=== PATIENT | male | born 1985 | race Caucasian/White ===

== ENCOUNTER 2017-03-11 15:54 | Inpatient (IN) | payer MEDICARE ==
[~2017-03-11] VITALS: Ht 172.7 cm; Wt 132.2 kg
[2017-03-11] MEDS ORDERED: DEXAMETHASONE 4 MG TABLET PO ONE (16:30)
[2017-03-11] MEDS ORDERED: SODIUM CHLORIDE FLUSH 10ML SYR IVF ONE (17:00)
[2017-03-11] MEDS ORDERED: SODIUM CHLORIDE 0.9% 1,000 ML IV ONE (17:08)
[2017-03-11] MEDS ORDERED: DEXAMETHASONE 4 MG TABLET ONE (17:10)
[2017-03-11 17:27] LABS: HEMATOCRIT 47.8 % (39.2-51.8); HEMOGLOBIN 15.8 g/dL (13.7-18.0); WHITE BLOOD COUNT 13.5 x10^3/uL (3.4-10)
[2017-03-11] MEDS ORDERED: LEVOFLOXACIN/PMX 750MG/150ML 150 ML IVPB ONE (17:30)
[2017-03-11 17:37] LABS: BLOOD UREA NITROGEN 12 mg/dL (7-18)
[2017-03-11] MEDS ORDERED: LEVOFLOXACIN/PMX 750MG/150ML 150 ML ONE (17:44)
[2017-03-11] MEDS ORDERED: DOCUSATE 100 MG CAPSULE PO PRN (19:30)
[2017-03-11] MEDS ORDERED: DIPHENHYDRAMINE 25 MG CAPSULE PO PRN (19:30)
[2017-03-11] MEDS ORDERED: ACETAMINOPHEN 325 MG TABLET PO PRN (19:30)
[2017-03-11] MEDS ORDERED: ENALAPRILAT 1.25 MG/ML, 2ML IVPush PRN (19:30)
[2017-03-11] MEDS ORDERED: DEXAMETHASONE 4 MG/ML, 1ML ONE (19:57)
[2017-03-11] MEDS ORDERED: ENOXAPARIN 40 MG/0.4 ML ONE (19:58)
[2017-03-11] MEDS ORDERED: VANCOMYCIN PER PHARMACY MC PRN (20:00)
[2017-03-11] MEDS: ENOXAPARIN 40 MG/0.4 ML SQ SCH (20:01)
[2017-03-11] MEDS: DEXAMETHASONE 4 MG/ML, 1ML IVPush SCH (20:01)
[2017-03-11] MEDS: NYSTATIN 500,000 UNITS/5 ML UDC PO SCH (20:26)
[2017-03-11] MEDS ORDERED: PHARMACOKINETIC MONITORING MC PRN (23:30)
[2017-03-12] MEDS: VANCOMYCIN 2,500 MG in SODIUM CHLORIDE 0.9% 500 ML IV SCH ×2 (00:20→12:02)
[2017-03-12] MEDS: SODIUM CHLORIDE 0.9% 1,000 ML IV SCH ×3 (00:20→11:41)
[2017-03-12] MEDS ORDERED: DEXAMETHASONE 4 MG/ML, 1ML ONE ×3 (02:19→09:23)
[2017-03-12] MEDS: NYSTATIN 500,000 UNITS/5 ML UDC PO SCH ×4 (03:02→21:34)
[2017-03-12] MEDS: DEXAMETHASONE 4 MG/ML, 1ML IVPush SCH ×5 (03:03→21:34)
[2017-03-12] MEDS ORDERED: CEFTRIAXONE PMX 2GM/50ML 50 ML IV SCH (05:00)
[2017-03-12] MEDS ORDERED: CEFTRIAXONE PMX 2GM/50ML 50 ML ONE (05:01)
[2017-03-12 05:14] LABS: HEMATOCRIT 47.6 % (39.2-51.8); HEMOGLOBIN 15.9 g/dL (13.7-18.0); WHITE BLOOD COUNT 13.7 x10^3/uL (3.4-10)
[2017-03-12 05:15] LABS: BLOOD UREA NITROGEN 13 mg/dL (7-18)
[2017-03-12] MEDS ORDERED: OMNIPAQUE 350 MG/ML, 100ML BOTTLE ONE (09:19)
[2017-03-12 17:25] VITALS: BP 152/94
[2017-03-12] MEDS ORDERED: SODIUM CHLORIDE 0.9% 1,000 ML IV SCH (19:22)
[2017-03-12 19:54] VITALS: BP 138/83
[2017-03-12] MEDS: ENOXAPARIN 40 MG/0.4 ML SQ SCH (21:33)
[2017-03-12] MEDS: AMPICILLIN/SULBACTAM 3 GM in SODIUM CHLORIDE 0.9% 100 ML IV SCH (21:34)
[2017-03-13] MEDS: AMPICILLIN/SULBACTAM 3 GM in SODIUM CHLORIDE 0.9% 100 ML IV SCH ×4 (03:30→23:30)
[2017-03-13] MEDS: DEXAMETHASONE 4 MG/ML, 1ML IVPush SCH ×4 (03:30→23:31)
[2017-03-13] MEDS: NYSTATIN 500,000 UNITS/5 ML UDC PO SCH ×4 (03:30→23:30)
[2017-03-13 07:05] VITALS: BP 123/77
[2017-03-13 08:19] LABS: ASPARTATE AMINO TRANSFERASE 23 U/L (15-37); BLOOD UREA NITROGEN 15 mg/dL (7-18)
[2017-03-13 08:22] LABS: HEMATOCRIT 45.5 % (39.2-51.8); HEMOGLOBIN 14.9 g/dL (13.7-18.0); WHITE BLOOD COUNT 19.3 x10^3/uL (3.4-10)
[2017-03-13 13:46] LABS: BLOOD UREA NITROGEN 16 mg/dL (7-18)
[2017-03-13 13:50] LABS: ASPARTATE AMINO TRANSFERASE 26 U/L (15-37)
[2017-03-13] MEDS: VANCOMYCIN 2,500 MG in SODIUM CHLORIDE 0.9% 500 ML IV SCH ×2 (14:03)
[2017-03-13 14:28] VITALS: BP 126/78
[2017-03-13 18:47] VITALS: BP 162/77
[2017-03-13] MEDS: ENOXAPARIN 40 MG/0.4 ML SQ SCH (23:30)
[2017-03-14 00:33] VITALS: BP 157/84
[2017-03-14] MEDS: VANCOMYCIN 2,500 MG in SODIUM CHLORIDE 0.9% 500 ML IV SCH (02:23)
[2017-03-14 05:20] LABS: HEMATOCRIT 45.6 % (39.2-51.8); WHITE BLOOD COUNT 16.1 x10^3/uL (3.4-10)
[2017-03-14 05:25] LABS: BLOOD UREA NITROGEN 19 mg/dL (7-18)
[2017-03-14 05:29] LABS: ASPARTATE AMINO TRANSFERASE 33 U/L (15-37)
[2017-03-14] MEDS: AMPICILLIN/SULBACTAM 3 GM in SODIUM CHLORIDE 0.9% 100 ML IV SCH ×4 (05:55→23:31)
[2017-03-14] MEDS: NYSTATIN 500,000 UNITS/5 ML UDC PO SCH ×4 (05:56→23:31)
[2017-03-14] MEDS: DEXAMETHASONE 4 MG/ML, 1ML IVPush SCH ×2 (06:00→09:18)
[2017-03-14 08:43] VITALS: BP 152/75
[2017-03-14 12:21] VITALS: BP 120/74
[2017-03-14 18:48] VITALS: BP 138/79
[2017-03-14] MEDS: ENOXAPARIN 40 MG/0.4 ML SQ SCH (23:31)
[2017-03-15 01:05] VITALS: BP 134/83
[2017-03-15] MEDS: NYSTATIN 500,000 UNITS/5 ML UDC PO SCH ×2 (04:58→11:07)
[2017-03-15] MEDS: AMPICILLIN/SULBACTAM 3 GM in SODIUM CHLORIDE 0.9% 100 ML IV SCH ×2 (04:58→16:00)
[2017-03-15 05:48] LABS: BLOOD UREA NITROGEN 20 mg/dL (7-18); HEMATOCRIT 46.3 % (39.2-51.8); HEMOGLOBIN 15.4 g/dL (13.7-18.0); WHITE BLOOD COUNT 14.9 x10^3/uL (3.4-10)
[2017-03-15 06:45] VITALS: BP 120/74
[2017-03-15] MEDS: DEXAMETHASONE 4 MG/ML, 1ML IVPush SCH (10:57)
[2017-03-15 14:57] VITALS: BP 146/92
[2017-03-15] MEDS ORDERED: AMOX1TAB64 PO (15:56)
[2017-03-15] MEDS ORDERED: PRED10TA PO (15:57)
== END 2017-03-15 17:55 | disposition home or self-care (01) | DRG 153 ==
LOC: ED 18:11 → EDIP 18:44 → 3NE 03-12 14:30
DX: J05.10 Acute epiglottitis without obstruction (principal); Z68.41 Body mass index [BMI] 40.0-44.9, adult; I10 Essential (primary) hypertension; J36 Peritonsillar abscess; E66.01 Morbid (severe) obesity due to excess calories; F17.210 Nicotine dependence, cigarettes, uncomplicated; H54.8 Legal blindness, as defined in USA; H65.00 Acute serous otitis media, unspecified ear; I16.0 Hypertensive urgency; J32.0 Chronic maxillary sinusitis; J35.1 Hypertrophy of tonsils; Z80.3 Family history of malignant neoplasm of breast; G51.0 Bell's palsy
CPT/HCPCS: 36415; 70360; 70491; 80048; 80053; 82040; 83036; 83605; 83735; 84145; 85025; 87040; 87081; 87147; 87880; 99285; J0295; J0696; J1100; J1650; J1956; J3370; Q9967; J7030; J7040

== ENCOUNTER 2019-06-25 15:53 | Emergency (ER) | payer MEDICARE ==
[~2019-06-25] VITALS: Ht 172.7 cm; Wt 130.0 kg
[~2019-06-25 15:53] MED LIST: AMOX1TAB64 PO; PRED10TA PO
[2019-06-25 20:12] LABS: BASOPHILS % (AUTO) 2 % (0-1); EOSINOPHILS # (AUTO) 0.03 x10^3/uL (0-0.4); EOSINOPHILS % (AUTO) 0 % (1-7); LYMPHOCYTES # (AUTO) 1.06 x10^3/uL (1-3.4); LYMPHOCYTES % (AUTO) 16 % (22-44); MD NO; MEAN CORPUSCULAR HEMOGLOBIN 34.5 pg (27.5-34.5); MEAN CORPUSCULAR HGB CONC 33.4 g/dL (33.2-36.2); MEAN CORPUSCULAR VOLUME 103.1 fL (81-97); MEAN PLATELET VOLUME 8.7 fL (7.4-10.4); MONOCYTES % (AUTO) 6 % (2-9); NEUTROPHILS # (AUTO) 5.19 x10^3/uL (1.8-6.8); NEUTROPHILS % (AUTO) 77 % (42-75); PLATELET COUNT 108 x10^3/uL (130-400); RED BLOOD COUNT 4.18 x10^6/uL (4.38-5.82); RED CELL DISTRIBUTION WIDTH 16.1 % (9.4-14.8)
[2019-06-25 20:13] VITALS: BP 168/81
--- NOTE | 2019-06-25 20:14 | NUR ---
PT CAME IN COMPLAINING OF "VOMITTING UP BLOOD". PUKED IN THE BATHROOM IN THE LOBBY. FAMILY IS BEDSIDE. CALL LIGHT WITHIN REACH
[2019-06-25 20:24] LABS: ALBUMIN 3.2 g/dL (3.4-5.0); ANION GAP 7 mmol/L (5-15); CHLORIDE 104 mmol/L (98-107)
[2019-06-25] MEDS ORDERED: LORazepam 2 MG/ML, 1ML ONE (20:28)
[2019-06-25] MEDS ORDERED: ONDANSETRON 2MG/ML, 2ML ONE (20:28)
[2019-06-25 20:30] LABS: ALANINE AMINOTRANSFERASE 58 U/L (12-78); ALKALINE PHOSPHATASE 157 U/L (45-117); BILIRUBIN,TOTAL 4.2 mg/dL (0.2-1.0); CREATININE 0.77 mg/dL (0.7-1.3); TOTAL PROTEIN 8.8 g/dL (6.4-8.2)
[2019-06-25] MEDS ORDERED: ONDANSETRON 2MG/ML, 2ML IVPush ONE (20:30)
[2019-06-25] MEDS ORDERED: SODIUM CHLORIDE 0.9% 1,000ML IVBOLUS ONE (20:30)
[2019-06-25] MEDS ORDERED: LORazepam 2 MG/ML, 1ML IVPush PRN (20:30)
[2019-06-25] MEDS ORDERED: THIAMINE 100 MG in SODIUM CHLORIDE 0.9% 50 ML IVPB ONE (20:30)
[2019-06-25] MEDS ORDERED: SODIUM CHLORIDE FLUSH 10ML SYR IVF ONE (20:30)
[2019-06-25] MEDS ORDERED: LORazepam 1MG TABLET ONE (20:53)
[2019-06-25] MEDS ORDERED: MAALOX/HYOSCYAMINE/LIDOCAINE 45 ML BTL ONE (20:53)
--- NOTE | 2019-06-25 20:58 | NUR ---
PT REFUSED IV START, 1000ML NS, IV ATIVAN, IV ZOFRAN AND IV THIAMINE. PT STATED "I JUST WANT TO HAVE SOMETHING TO SETTLE MY STOMACH AND GO HOME" DR. HOLLY NOTFIED. ORDERS CHANGED TO PO ATIVAN AND GI COCKTAIL. WILL BE DC
[2019-06-25] MEDS ORDERED: LORazepam 1MG TABLET PO ONE (21:30)
[2019-06-25] MEDS ORDERED: MAALOX/HYOSCYAMINE/LIDOCAINE 45 ML BTL PO ONE (21:30)
== END 2019-06-25 21:23 | disposition home or self-care (01) ==
LOC: ED 21:15
DX: K29.20 Alcoholic gastritis without bleeding (principal); F10.239 Alcohol dependence with withdrawal, unspecified; Z87.891 Personal history of nicotine dependence; Y90.9 Presence of alcohol in blood, level not specified
CPT/HCPCS: 36415; 80053; 85025; 99283

== ENCOUNTER 2019-09-30 15:09 | Emergency (ER) | payer MEDICARE ==
[~2019-09-30] VITALS: Ht 172.7 cm; Wt 138.2 kg
--- NOTE | 2019-09-30 15:17 | NUR ---
pt. refused oxygen for transport.
[2019-09-30] MEDS ORDERED: PROMETHAZINE 25 MG/ML, 1ML IM ONE (16:30)
[2019-09-30] MEDS ORDERED: ONDANSETRON 2MG/ML, 2ML IVPush ONE (16:30)
[2019-09-30] MEDS ORDERED: morphine SULFATE 10 MG/ML, 1ML IVPush ONE (16:30)
[2019-09-30] MEDS ORDERED: SODIUM CHLORIDE 0.9% 1,000ML IVBOLUS ONE (16:30)
[2019-09-30] MEDS ORDERED: PANTOPRAZOLE 40 MG IV IV ONE (16:30)
[2019-09-30] MEDS ORDERED: MORPHINE SULFATE 4 MG/ML, 1ML ONE (16:34)
[2019-09-30] MEDS ORDERED: ONDANSETRON 2MG/ML, 2ML ONE (16:34)
[2019-09-30] MEDS ORDERED: PANTOPRAZOLE 40 MG IV ONE (16:34)
[2019-09-30] MEDS ORDERED: PROMETHAZINE 25 MG/ML, 1ML ONE (16:34)
[2019-09-30 16:49] LABS: ALANINE AMINOTRANSFERASE 33 U/L (12-78); ALBUMIN 2.5 g/dL (3.4-5.0); ANION GAP 9 mmol/L (5-15); CALCIUM 8.1 mg/dL (8.5-10.1); CHLORIDE 105 mmol/L (98-107); CREATININE 0.92 mg/dL (0.7-1.3)
[2019-09-30 16:51] LABS: ALKALINE PHOSPHATASE 151 U/L (45-117); BILIRUBIN,TOTAL 13.2 mg/dL (0.2-1.0); TOTAL PROTEIN 7.6 g/dL (6.4-8.2)
[2019-09-30 17:15] LABS: MD YES; MEAN CORPUSCULAR HEMOGLOBIN 37.9 pg (27.5-34.5); MEAN CORPUSCULAR HGB CONC 34.3 g/dL (33.2-36.2); MEAN CORPUSCULAR VOLUME 110.4 fL (81-97); MEAN PLATELET VOLUME 8.1 fL (7.4-10.4); PLATELET COUNT 109 x10^3/uL (130-400); RED BLOOD COUNT 2.82 x10^6/uL (4.38-5.82)
[2019-09-30 17:17] LABS: BAND#(MANUAL) 0.57 x10^3/uL; BANDS%(MANUAL) 11 % (0-7); LYMPH#(MANUAL) 0.62 x10^3/uL (1-3.4); LYMPHS% (MANUAL) 12 % (22-44); SEGS% (MANUAL) 77 % (42-75)
[2019-09-30 17:18] LABS: <PLATELET ESTIMATE> DECREASED; <PLT MORPHOLOGY> NORMAL PLT MORPH; ANISOCYTOSIS 1+; OVALOCYTES 1+
[2019-09-30] MEDS ORDERED: LORazepam 2 MG/ML, 1ML IVPush ONE (17:30)
[2019-09-30] MEDS ORDERED: LORazepam 2 MG/ML, 1ML ONE (17:46)
[2019-09-30 17:51] VITALS: BP 131/46
--- NOTE | 2019-09-30 17:53 | NUR ---
medicated per orders. pt unsure if he want to be admitted. md at bedside explaining poc and reason for admit
[2019-09-30] MEDS ORDERED: IBUPROFEN 200 MG TABLET PO ONE (18:30)
--- NOTE | 2019-09-30 19:22 | NUR ---
PT REFUSING TO BE ADMITTED. MD AT BEDSIDE DISCUSSING RISK OF DC. PT STATES "I NEED TO FIND THE MOTIVATION" Patient/Caregiver given discharge instructions and they have confirmed that they understand the instructions. Patient ambulatory with steady gait.
== END 2019-09-30 19:32 | disposition home or self-care (01) ==
LOC: ED 19:25
DX: K29.20 Alcoholic gastritis without bleeding (principal); E86.0 Dehydration; R50.9 Fever, unspecified; R74.8 Abnormal levels of other serum enzymes; F10.239 Alcohol dependence with withdrawal, unspecified; Y90.9 Presence of alcohol in blood, level not specified; K21.9 Gastro-esophageal reflux disease without esophagitis
CPT/HCPCS: 36415; 71045; 80053; 80307; 83690; 85025; 93005; 96365; 96372; 96375; 99285; C9113; J2060; J2270; J2405; J2550; J7030; 96361

== ENCOUNTER 2020-04-01 15:37 | Inpatient (IN) | payer MEDICARE, MEDICAID ==
[~2020-04-01] VITALS: Ht 167.6 cm; Wt 138.7 kg
[~2020-04-01 15:37] MED LIST changes: +CEFD300C37 PO; +ERGO500018 PO; +FURO10VI37 IV; +LACT20SO13 PO; +MULT-332 PO; +PANT40TA6 PO; +PROP10TA16 PO; +RIFA550T4 PO; +SPIR50TA PO; +VENL25TA PO
--- NOTE | 2020-04-01 15:49 | NUR ---
PT BIB [facility] FROM HOME. PER EMS, MOTHER CALLED 911 D/T PT BEING ALTERED WHEN HE WOKE UP THIS AM, AND GOT PROGRESSIVELY WORSE THROUGHOUT THE DAY. PT HAS HX OF LIVER FAILURE AND ALCOHOLISM. WAS ADMITTED RECENTLY FOR SAME, ELEVATED AMMONIA LEVELS. PT ALSO HAS HX OF DM, BS 108 PER EMS. PT ARRIVES TO ED LETHARGIC, TACHYPNEIC. OPENS EYES AND RESPONDS WITH REPETITIVE ANSWERS, "TODD, KRISHAN". EXTREMELY JAUNDICED. EKG DONE AT AND ER PA AT NOW.
[2020-04-01] MEDS ORDERED: SODIUM CHLORIDE FLUSH 10ML SYR IVF ONE ×2 (16:00→16:30)
[2020-04-01 16:17] LABS: BASOPHILS # (AUTO) 0.01 x10^3/uL (0-0.1); BASOPHILS % (AUTO) 0 % (0-1); EOSINOPHILS % (AUTO) 4 % (1-7); LYMPHOCYTES % (AUTO) 12 % (22-44); MD NO; MEAN CORPUSCULAR HEMOGLOBIN 36.1 pg (27.5-34.5); MEAN CORPUSCULAR HGB CONC 33.6 g/dL (33.2-36.2); MONOCYTES # (AUTO) 0.29 x10^3/uL (0.2-0.8); MONOCYTES % (AUTO) 6 % (2-9); NEUTROPHILS # (AUTO) 3.94 x10^3/uL (1.8-6.8); NEUTROPHILS % (AUTO) 78 % (42-75); PLATELET COUNT 145 x10^3/uL (130-400); RED BLOOD COUNT 2.26 x10^6/uL (4.38-5.82); RED CELL DISTRIBUTION WIDTH 14.9 % (9.4-14.8)
[2020-04-01 16:24] LABS: INTERNATIONAL NORMALIZED RATIO 1.8 (0.93-1.1); PROTHROMBIN TIME 18.6 Seconds (9.6-11.5)
[2020-04-01 16:28] LABS: ALANINE AMINOTRANSFERASE 28 U/L (12-78); ALBUMIN 3.2 g/dL (3.4-5.0); ANION GAP 12 mmol/L (5-15); CALCIUM 9.6 mg/dL (8.5-10.1); CHLORIDE 100 mmol/L (98-107); CREATININE 7.85 mg/dL (0.7-1.3)
[2020-04-01 16:32] LABS: ALKALINE PHOSPHATASE 74 U/L (45-117); BILIRUBIN,TOTAL 10.8 mg/dL (0.2-1.0)
[2020-04-01 16:35] LABS: TROPONIN I < 0.015 ng/mL (0.000-0.045)
--- NOTE | 2020-04-01 16:38 | NUR ---
STRAIGHT CATH DONE AND 600ML URINE DRAINED. LAB CALLED WITH CRITICAL BUN 105, ERP NOTIFIED.
[2020-04-01] MEDS ORDERED: CALCIUM CHLORIDE 10%, 10ML SYR ONE (16:53)
[2020-04-01] MEDS ORDERED: INSULIN LISPRO SINGLE DOSE, ER SQ-INSULIN ONE (16:53)
[2020-04-01] MEDS ORDERED: SODIUM BICARB 8.4%, 50ML SYRINGE ONE (16:53)
[2020-04-01] MEDS ORDERED: DEXTROSE 50%, 50ML SYRINGE ONE (16:53)
[2020-04-01 16:58] LABS: SALICYLATE LEVEL < 1.7 mg/dL (2.8-20.0)
[2020-04-01 17:00] LABS: AMPHETAMINE SCREEN, URINE Negative (Negative); BARBITURATE SCREEN, URINE Negative (Negative); BENZODIAZEPINE SCREEN, URINE Negative (Negative); CANNABINOID SCREEN, URINE Negative (Negative); COCAINE SCREEN, URINE Negative (Negative); METHADONE SCREEN, URINE Negative (Negative); OPIATE SCREEN, URINE Negative (Negative)
[2020-04-01] MEDS ORDERED: SODIUM BICARB 8.4%, 50ML SYRINGE IVPush ONE (17:00)
[2020-04-01] MEDS ORDERED: CALCIUM CHLORIDE 10%, 10ML SYR IVPush ONE (17:00)
[2020-04-01] MEDS ORDERED: DEXTROSE 50%, 50ML SYRINGE IVPush ONE (17:00)
[2020-04-01] MEDS ORDERED: INSULIN REGULAR 100 UNITS/ML, 3ML VIAL IVPush ONE (17:00)
--- NOTE | 2020-04-01 17:20 | NUR ---
PT TO VASCULAR LAB FOR DIALYSIS CATHETER PLACEMENT. MOTHER AT BS.
--- NOTE | 2020-04-01 18:05 | NUR ---
PT RETURNED FROM VASCULAR LAB; DIALYSIS CATHETER WAS PLACED TO R IJ. BUTT CATH INSERTED WITHOUT DIFFICULTY. MOTHER REMAINS AT BS. PT RESTING, AWAKENS TO VOICE, ANSWERS SOME BASIC QUESTIONS APPROPRIATELY.
--- NOTE | 2020-04-01 18:47 | NUR ---
ADMITTING MD WAS IN TO SEE PT.
[2020-04-01] MEDS ORDERED: FURO20TA3 PO (19:53)
--- NOTE | 2020-04-01 19:56 | NUR ---
ADMITTING MD WAS IN TO SEE PT. PT'S MOTHER REMAINS AT BS.
[2020-04-01] MEDS ORDERED: ONDANSETRON 2MG/ML, 2ML IVPush PRN (20:30)
[2020-04-02] MEDS: CEFTRIAXONE PMX 1GM/50ML 50 ML IV SCH ×2 (00:44→21:01)
[2020-04-02] MEDS: LACTULOSE 3.3 GM/5 ML ORAL.SOL RC SCH ×2 (00:45→08:00)
[2020-04-02 01:33] VITALS: BP 122/71
[2020-04-02 02:19] LABS: MICROSCOPIC AUTO
[2020-04-02 02:21] LABS: CHLORIDE,URINE RANDOM 35 mmol/L; POTASSIUM,URINE RANDOM 30 mmol/L; SODIUM,URINE RANDOM 38 mmol/L
[2020-04-02] MEDS ORDERED: GLUCAGON 1 MG IM PRN (03:30)
[2020-04-02] MEDS ORDERED: DEXTROSE 50%, 50ML SYRINGE IVPush PRN (03:30)
[2020-04-02] MEDS ORDERED: DEXTROSE 4 GM TAB.CHEW PO PRN (03:30)
[2020-04-02 06:15] LABS: CHLORIDE 102 mmol/L (98-107)
[2020-04-02 06:31] LABS: ALANINE AMINOTRANSFERASE 23 U/L (12-78); ALBUMIN 2.7 g/dL (3.4-5.0); ALKALINE PHOSPHATASE 56 U/L (45-117); ANION GAP 13 mmol/L (5-15); BILIRUBIN,TOTAL 10.7 mg/dL (0.2-1.0); CALCIUM 9.6 mg/dL (8.5-10.1); CREATININE 6.02 mg/dL (0.7-1.3); TOTAL PROTEIN 6.8 g/dL (6.4-8.2)
[2020-04-02 06:56] LABS: BASOPHILS % (AUTO) 0 % (0-1); EOSINOPHILS # (AUTO) 0.15 x10^3/uL (0-0.4); EOSINOPHILS % (AUTO) 2 % (1-7); LYMPHOCYTES # (AUTO) 0.52 x10^3/uL (1-3.4); LYMPHOCYTES % (AUTO) 8 % (22-44); MD MORPH REVIEW ONLY; MEAN CORPUSCULAR HEMOGLOBIN 37.1 pg (27.5-34.5); MEAN CORPUSCULAR HGB CONC 34.5 g/dL (33.2-36.2); MEAN PLATELET VOLUME 8.9 fL (7.4-10.4); MONOCYTES # (AUTO) 0.57 x10^3/uL (0.2-0.8); MONOCYTES % (AUTO) 9 % (2-9); NEUTROPHILS # (AUTO) 5.24 x10^3/uL (1.8-6.8); NEUTROPHILS % (AUTO) 81 % (42-75); PLATELET COUNT 95 x10^3/uL (130-400); RED BLOOD COUNT 1.97 x10^6/uL (4.38-5.82); RED CELL DISTRIBUTION WIDTH 14.5 % (9.4-14.8)
[2020-04-02 06:58] LABS: <PLATELET ESTIMATE> DECREASED; <PLT MORPHOLOGY> NORMAL PLT MORPH; ACANTHOCYTES 1+
[2020-04-02 07:12] VITALS: BP 123/71
[2020-04-02] MEDS: PANTOPRAZOLE 40 MG IV IVPush SCH (08:16)
[2020-04-02] MEDS: SODIUM CHLORIDE FLUSH 10ML SYR IVF SCH ×2 (09:00→21:02)
[2020-04-02] MEDS ORDERED: ALBUMIN HUMAN 25% 100 ML IV ONE (10:00)
[2020-04-02 12:48] VITALS: BP 144/71
[2020-04-02] MEDS ORDERED: PROPRANOLOL 10 MG TABLET PO SCH (14:00)
[2020-04-02] MEDS: RIFAXIMIN 550 MG TABLET PO SCH (16:15)
[2020-04-02] MEDS: LACTULOSE 20 GM/30 ML UDC PO SCH ×2 (16:16→21:01)
[2020-04-02] MEDS: PROPRANOLOL 10 MG TABLET PO SCH ×2 (16:16→21:01)
[2020-04-02 19:24] VITALS: BP 126/66
[2020-04-03] VITALS (10 sets, daily range): BP systolic 109–122; BP diastolic 51–78
[2020-04-03] MEDS: PROPRANOLOL 10 MG TABLET PO SCH ×3 (05:17→21:49)
[2020-04-03 05:57] LABS: INTERNATIONAL NORMALIZED RATIO 2.08 (0.93-1.1); PROTHROMBIN TIME 21.6 Seconds (9.6-11.5)
[2020-04-03 06:00] LABS: ALANINE AMINOTRANSFERASE 21 U/L (12-78); ALBUMIN 2.8 g/dL (3.4-5.0); ANION GAP 10 mmol/L (5-15); CALCIUM 9.2 mg/dL (8.5-10.1); CHLORIDE 104 mmol/L (98-107); CREATININE 4.85 mg/dL (0.7-1.3)
[2020-04-03 06:03] LABS: ALKALINE PHOSPHATASE 50 U/L (45-117); BILIRUBIN,TOTAL 11.2 mg/dL (0.2-1.0); TOTAL PROTEIN 6.8 g/dL (6.4-8.2)
[2020-04-03 06:07] LABS: MEAN CORPUSCULAR HEMOGLOBIN 36.9 pg (27.5-34.5); MEAN CORPUSCULAR HGB CONC 34.4 g/dL (33.2-36.2); RED BLOOD COUNT 1.77 x10^6/uL (4.38-5.82)
[2020-04-03 06:29] LABS: PLATELET COUNT 57 x10^3/uL (130-400)
[2020-04-03 06:30] LABS: BASOPHILS # (AUTO) 0.01 x10^3/uL (0-0.1); BASOPHILS % (AUTO) 0 % (0-1); EOSINOPHILS # (AUTO) 0.17 x10^3/uL (0-0.4); EOSINOPHILS % (AUTO) 3 % (1-7); LYMPHOCYTES # (AUTO) 0.83 x10^3/uL (1-3.4); LYMPHOCYTES % (AUTO) 17 % (22-44); MD MORPH REVIEW ONLY; MONOCYTES # (AUTO) 0.55 x10^3/uL (0.2-0.8); MONOCYTES % (AUTO) 11 % (2-9); NEUTROPHILS % (AUTO) 68 % (42-75)
[2020-04-03 06:31] LABS: ANISOCYTOSIS 1+; OVALOCYTES 1+; SCHISTOCYTES 1+
[2020-04-03 06:33] LABS: <PLATELET ESTIMATE> DECREASED; <PLT MORPHOLOGY> NORMAL PLT MORPH; ACANTHOCYTES 2+
[2020-04-03] MEDS: LACTULOSE 20 GM/30 ML UDC PO SCH ×3 (08:44→20:35)
[2020-04-03] MEDS: PANTOPRAZOLE 40 MG IV IVPush SCH (08:44)
[2020-04-03] MEDS: SODIUM CHLORIDE FLUSH 10ML SYR IVF SCH ×2 (08:45→20:35)
[2020-04-03 12:18] LABS: OCCULT BLOOD POSITIVE (NEGATIVE)
[2020-04-03] MEDS: RIFAXIMIN 550 MG TABLET PO SCH ×2 (15:06→20:35)
[2020-04-03] MEDS: CEFTRIAXONE PMX 1GM/50ML 50 ML IV SCH (20:34)
[2020-04-04] VITALS (17 sets, daily range): BP systolic 107–130; BP diastolic 43–71
[2020-04-04] MEDS: PROPRANOLOL 10 MG TABLET PO SCH ×3 (05:47→21:22)
[2020-04-04 06:33] LABS: ALANINE AMINOTRANSFERASE 21 U/L (12-78); ALBUMIN 2.8 g/dL (3.4-5.0); ANION GAP 8 mmol/L (5-15); CALCIUM 9.2 mg/dL (8.5-10.1); CHLORIDE 104 mmol/L (98-107); CREATININE 3.92 mg/dL (0.7-1.3)
[2020-04-04 06:34] LABS: MEAN CORPUSCULAR HEMOGLOBIN 36.6 pg (27.5-34.5); MEAN CORPUSCULAR HGB CONC 34.5 g/dL (33.2-36.2); MEAN PLATELET VOLUME 8.8 fL (7.4-10.4); RED BLOOD COUNT 1.61 x10^6/uL (4.38-5.82); RED CELL DISTRIBUTION WIDTH 16.7 % (9.4-14.8)
[2020-04-04 06:36] LABS: ALKALINE PHOSPHATASE 53 U/L (45-117); BILIRUBIN,TOTAL 11.6 mg/dL (0.2-1.0); TOTAL PROTEIN 6.7 g/dL (6.4-8.2)
[2020-04-04 06:37] LABS: PLATELET COUNT 42 x10^3/uL (130-400)
[2020-04-04 06:50] LABS: MD YES
[2020-04-04 06:52] LABS: BAND#(MANUAL) 0.05 x10^3/uL; BANDS%(MANUAL) 1 % (0-7); BASOS#(MANUAL) 0.05 x10^3/uL (0-0.1); BASOS% (MANUAL) 1 % (0-1); EOS#(MANUAL) 0.31 x10^3/uL (0.0-0.4); EOS% (MANUAL) 6 % (1-7); LYMPH#(MANUAL) 0.73 x10^3/uL (1-3.4); LYMPHS% (MANUAL) 14 % (22-44); MONOS#(MANUAL) 0.42 x10^3/uL (0.3-2.7); MONOS% (MANUAL) 8 % (2-9); SEG#(MANUAL) 3.64 x10^3/uL (1.8-6.8); SEGS% (MANUAL) 70 % (42-75)
[2020-04-04 06:53] LABS: ACANTHOCYTES 2+; ANISOCYTOSIS 1+
[2020-04-04 06:57] LABS: OVALOCYTES 1+
[2020-04-04 06:58] LABS: <PLATELET ESTIMATE> DECREASED; <PLT MORPHOLOGY> NORMAL PLT MORPH
[2020-04-04] MEDS ORDERED: PANTOPRAZOLE 40MG TABLET PO SCH (07:30)
[2020-04-04] MEDS: SODIUM CHLORIDE FLUSH 10ML SYR IVF SCH ×2 (09:00→20:24)
[2020-04-04] MEDS: RIFAXIMIN 550 MG TABLET PO SCH ×2 (13:55→16:35)
[2020-04-04] MEDS: LACTULOSE 20 GM/30 ML UDC PO SCH ×3 (13:56→20:59)
[2020-04-04] MEDS: CEFTRIAXONE PMX 1GM/50ML 50 ML IV SCH (20:23)
[2020-04-05] VITALS (8 sets, daily range): BP systolic 105–145; BP diastolic 43–74
[2020-04-05] MEDS: PROPRANOLOL 10 MG TABLET PO SCH ×3 (05:56→21:01)
[2020-04-05 06:31] LABS: CHLORIDE 105 mmol/L (98-107)
[2020-04-05 06:41] LABS: ALANINE AMINOTRANSFERASE 19 U/L (12-78); ALBUMIN 2.6 g/dL (3.4-5.0); ALKALINE PHOSPHATASE 51 U/L (45-117); ANION GAP 6 mmol/L (5-15); BILIRUBIN,TOTAL 14.3 mg/dL (0.2-1.0); CALCIUM 9.3 mg/dL (8.5-10.1); CREATININE 3.04 mg/dL (0.7-1.3); TOTAL PROTEIN 6.4 g/dL (6.4-8.2)
[2020-04-05 07:16] LABS: MEAN CORPUSCULAR HEMOGLOBIN 35.8 pg (27.5-34.5); MEAN CORPUSCULAR HGB CONC 33.9 g/dL (33.2-36.2); MEAN PLATELET VOLUME 8.6 fL (7.4-10.4); RED BLOOD COUNT 1.91 x10^6/uL (4.38-5.82)
[2020-04-05 07:18] LABS: PLATELET COUNT 37 x10^3/uL (130-400)
[2020-04-05 07:19] LABS: BASOPHILS # (AUTO) 0.01 x10^3/uL (0-0.1); BASOPHILS % (AUTO) 0 % (0-1); EOSINOPHILS # (AUTO) 0.22 x10^3/uL (0-0.4); EOSINOPHILS % (AUTO) 4 % (1-7); LYMPHOCYTES # (AUTO) 0.79 x10^3/uL (1-3.4); LYMPHOCYTES % (AUTO) 15 % (22-44); MD MORPH REVIEW ONLY; MONOCYTES % (AUTO) 11 % (2-9); NEUTROPHILS # (AUTO) 3.73 x10^3/uL (1.8-6.8); NEUTROPHILS % (AUTO) 70 % (42-75)
[2020-04-05 07:21] LABS: ACANTHOCYTES 2+; ANISOCYTOSIS 1+; OVALOCYTES 1+; SCHISTOCYTES 1+
[2020-04-05 07:22] LABS: <PLATELET ESTIMATE> DECREASED; <PLT MORPHOLOGY> NORMAL PLT MORPH
[2020-04-05] MEDS: SODIUM CHLORIDE FLUSH 10ML SYR IVF SCH ×2 (09:56→21:01)
[2020-04-05] MEDS: LACTULOSE 20 GM/30 ML UDC PO SCH ×3 (09:56→21:00)
[2020-04-05] MEDS: RIFAXIMIN 550 MG TABLET PO SCH ×2 (09:56→16:25)
[2020-04-05] MEDS: PANTOPRAZOLE 40 MG IV IVPush SCH ×2 (09:56→21:00)
[2020-04-05 16:34] LABS: MEAN CORPUSCULAR HGB CONC 33.9 g/dL (33.2-36.2); MEAN PLATELET VOLUME 9.3 fL (7.4-10.4); RED BLOOD COUNT 2.32 x10^6/uL (4.38-5.82); RED CELL DISTRIBUTION WIDTH 18.3 % (9.4-14.8)
[2020-04-05 16:37] LABS: PLATELET COUNT 29 x10^3/uL (130-400)
[2020-04-05 16:40] LABS: ANISOCYTOSIS 1+; BASOPHILS # (AUTO) 0.03 x10^3/uL (0-0.1); BASOPHILS % (AUTO) 0 % (0-1); EOSINOPHILS # (AUTO) 0.18 x10^3/uL (0-0.4); EOSINOPHILS % (AUTO) 3 % (1-7); LYMPHOCYTES # (AUTO) 0.65 x10^3/uL (1-3.4); LYMPHOCYTES % (AUTO) 10 % (22-44); MD MORPH REVIEW ONLY; MONOCYTES # (AUTO) 0.54 x10^3/uL (0.2-0.8); MONOCYTES % (AUTO) 9 % (2-9); NEUTROPHILS # (AUTO) 4.84 x10^3/uL (1.8-6.8); NEUTROPHILS % (AUTO) 78 % (42-75)
[2020-04-05 16:41] LABS: ACANTHOCYTES 2+; SCHISTOCYTES 1+
[2020-04-05 16:42] LABS: <PLATELET ESTIMATE> DECREASED; <PLT MORPHOLOGY> NORMAL PLT MORPH; OVALOCYTES 1+
[2020-04-05] MEDS: CEFTRIAXONE PMX 1GM/50ML 50 ML IV SCH (22:57)
[2020-04-05 23:59] LABS: MEAN CORPUSCULAR HEMOGLOBIN 34.8 pg (27.5-34.5); MEAN CORPUSCULAR HGB CONC 33.5 g/dL (33.2-36.2); MEAN PLATELET VOLUME 8.7 fL (7.4-10.4); RED BLOOD COUNT 2.31 x10^6/uL (4.38-5.82); RED CELL DISTRIBUTION WIDTH 19.1 % (9.4-14.8)
[2020-04-06] VITALS (11 sets, daily range): BP systolic 107–137; BP diastolic 50–68
[2020-04-06] LABS: PLATELET COUNT 35 x10^3/uL (130-400)
[2020-04-06 00:13] LABS: ACANTHOCYTES 2+; ANISOCYTOSIS 1+; MD MORPH REVIEW ONLY; SCHISTOCYTES 1+
[2020-04-06 00:16] LABS: <PLATELET ESTIMATE> DECREASED; <PLT MORPHOLOGY> NORMAL PLT MORPH; OVALOCYTES 1+
[2020-04-06 00:23] LABS: BASOPHILS # (AUTO) 0.01 x10^3/uL (0-0.1); BASOPHILS % (AUTO) 0 % (0-1); EOSINOPHILS % (AUTO) 4 % (1-7); LYMPHOCYTES # (AUTO) 0.62 x10^3/uL (1-3.4); LYMPHOCYTES % (AUTO) 12 % (22-44); MONOCYTES # (AUTO) 0.56 x10^3/uL (0.2-0.8); MONOCYTES % (AUTO) 11 % (2-9); NEUTROPHILS % (AUTO) 73 % (42-75)
[2020-04-06 03:11] LABS: ALANINE AMINOTRANSFERASE 16 U/L (12-78); ALBUMIN 2.6 g/dL (3.4-5.0); ANION GAP 6 mmol/L (5-15); CALCIUM 8.8 mg/dL (8.5-10.1); CHLORIDE 104 mmol/L (98-107)
[2020-04-06 03:13] LABS: ALKALINE PHOSPHATASE 49 U/L (45-117); BILIRUBIN,TOTAL 13.7 mg/dL (0.2-1.0); TOTAL PROTEIN 6.4 g/dL (6.4-8.2)
[2020-04-06 03:35] LABS: MEAN CORPUSCULAR HEMOGLOBIN 35.5 pg (27.5-34.5); RED BLOOD COUNT 2.19 x10^6/uL (4.38-5.82); RED CELL DISTRIBUTION WIDTH 18.4 % (9.4-14.8)
[2020-04-06 03:37] LABS: PLATELET COUNT 31 x10^3/uL (130-400)
[2020-04-06 03:54] LABS: MD YES
[2020-04-06 03:58] LABS: ANISOCYTOSIS 1+; BASOS#(MANUAL) 0.05 x10^3/uL (0-0.1); BASOS% (MANUAL) 1 % (0-1); EOS#(MANUAL) 0.09 x10^3/uL (0.0-0.4); EOS% (MANUAL) 2 % (1-7); LYMPH#(MANUAL) 0.85 x10^3/uL (1-3.4); LYMPHS% (MANUAL) 18 % (22-44); MONOS#(MANUAL) 0.09 x10^3/uL (0.3-2.7); MONOS% (MANUAL) 2 % (2-9); SEG#(MANUAL) 3.62 x10^3/uL (1.8-6.8); SEGS% (MANUAL) 77 % (42-75)
[2020-04-06 03:59] LABS: <PLATELET ESTIMATE> DECREASED; ACANTHOCYTES 2+; OVALOCYTES 1+; SCHISTOCYTES 1+
[2020-04-06 04:00] LABS: <PLT MORPHOLOGY> NORMAL PLT MORPH
[2020-04-06] MEDS: PROPRANOLOL 10 MG TABLET PO SCH ×3 (06:08→20:53)
[2020-04-06] MEDS: PANTOPRAZOLE 40 MG IV IVPush SCH ×2 (08:05→20:53)
[2020-04-06] MEDS: SODIUM CHLORIDE FLUSH 10ML SYR IVF SCH ×2 (08:06→20:54)
[2020-04-06] MEDS ORDERED: CHLORHEXIDINE 15 ML UDC ONE (08:27)
[2020-04-06] MEDS ORDERED: ONDANSETRON 2MG/ML, 2ML ONE (09:16)
[2020-04-06] MEDS ORDERED: SUCCINYLCHOLINE 20 MG/ML, 10ML ONE (09:16)
[2020-04-06] MEDS ORDERED: ALBUTEROL HFA 90 MCG/SPRAY ONE (09:16)
[2020-04-06] MEDS ORDERED: PROPOFOL 10 MG/ML, 20ML ONE (09:16)
[2020-04-06] MEDS ORDERED: ROCURONIUM 10 MG/ML,10ML ONE (09:16)
[2020-04-06] MEDS: RIFAXIMIN 550 MG TABLET PO SCH ×2 (10:37→18:33)
[2020-04-06] MEDS: LACTULOSE 20 GM/30 ML UDC PO SCH ×3 (10:37→20:53)
[2020-04-06 18:16] LABS: MEAN CORPUSCULAR HEMOGLOBIN 35.2 pg (27.5-34.5); MEAN CORPUSCULAR HGB CONC 33.8 g/dL (33.2-36.2); MEAN PLATELET VOLUME 9.2 fL (7.4-10.4); RED BLOOD COUNT 2.22 x10^6/uL (4.38-5.82); RED CELL DISTRIBUTION WIDTH 18.4 % (9.4-14.8)
[2020-04-06 18:18] LABS: PLATELET COUNT 27 x10^3/uL (130-400)
[2020-04-06 18:55] LABS: BASOPHILS # (AUTO) 0.02 x10^3/uL (0-0.1); BASOPHILS % (AUTO) 0 % (0-1); EOSINOPHILS # (AUTO) 0.11 x10^3/uL (0-0.4); EOSINOPHILS % (AUTO) 2 % (1-7); LYMPHOCYTES # (AUTO) 0.52 x10^3/uL (1-3.4); LYMPHOCYTES % (AUTO) 11 % (22-44); MONOCYTES # (AUTO) 0.48 x10^3/uL (0.2-0.8); MONOCYTES % (AUTO) 10 % (2-9); NEUTROPHILS # (AUTO) 3.71 x10^3/uL (1.8-6.8); NEUTROPHILS % (AUTO) 77 % (42-75)
[2020-04-06 18:56] LABS: MD YES
[2020-04-06 19:01] LABS: BAND#(MANUAL) 0.05 x10^3/uL; BANDS%(MANUAL) 1 % (0-7); EOS#(MANUAL) 0.05 x10^3/uL (0.0-0.4); EOS% (MANUAL) 1 % (1-7); LYMPH#(MANUAL) 0.67 x10^3/uL (1-3.4); LYMPHS% (MANUAL) 14 % (22-44); MONOS#(MANUAL) 0.38 x10^3/uL (0.3-2.7); MONOS% (MANUAL) 8 % (2-9); SEG#(MANUAL) 3.65 x10^3/uL (1.8-6.8); SEGS% (MANUAL) 76 % (42-75)
[2020-04-06 19:02] LABS: ANISOCYTOSIS 1+
[2020-04-06 19:03] LABS: OVALOCYTES 1+
[2020-04-06 19:04] LABS: <PLATELET ESTIMATE> DECREASED; <PLT MORPHOLOGY> NORMAL PLT MORPH; ACANTHOCYTES 2+; SCHISTOCYTES 1+
[2020-04-06] MEDS: CEFTRIAXONE PMX 1GM/50ML 50 ML IV SCH (20:53)
[2020-04-07 01:32] VITALS: BP 118/72
[2020-04-07 05:42] LABS: INTERNATIONAL NORMALIZED RATIO 1.87 (0.93-1.1); PROTHROMBIN TIME 19.4 Seconds (9.6-11.5)
[2020-04-07 05:53] LABS: ALANINE AMINOTRANSFERASE 18 U/L (12-78); ALBUMIN 2.7 g/dL (3.4-5.0); ANION GAP 7 mmol/L (5-15); CALCIUM 9.2 mg/dL (8.5-10.1); CHLORIDE 102 mmol/L (98-107); CREATININE 1.87 mg/dL (0.7-1.3)
[2020-04-07 05:56] LABS: ALKALINE PHOSPHATASE 49 U/L (45-117); BILIRUBIN,TOTAL 12.8 mg/dL (0.2-1.0); TOTAL PROTEIN 6.7 g/dL (6.4-8.2)
[2020-04-07 06:05] VITALS: BP 120/67
[2020-04-07] MEDS: PROPRANOLOL 10 MG TABLET PO SCH ×3 (06:10→20:54)
[2020-04-07 06:16] LABS: MEAN CORPUSCULAR HEMOGLOBIN 35.5 pg (27.5-34.5); MEAN CORPUSCULAR HGB CONC 33.9 g/dL (33.2-36.2); MEAN PLATELET VOLUME 8.8 fL (7.4-10.4); RED BLOOD COUNT 2.23 x10^6/uL (4.38-5.82); RED CELL DISTRIBUTION WIDTH 17.9 % (9.4-14.8)
[2020-04-07 06:17] LABS: MD YES
[2020-04-07 06:19] LABS: EOS#(MANUAL) 0.07 x10^3/uL (0.0-0.4); EOS% (MANUAL) 2 % (1-7); LYMPH#(MANUAL) 0.48 x10^3/uL (1-3.4); LYMPHS% (MANUAL) 14 % (22-44); MONOS#(MANUAL) 0.37 x10^3/uL (0.3-2.7); MONOS% (MANUAL) 11 % (2-9); SEG#(MANUAL) 2.48 x10^3/uL (1.8-6.8); SEGS% (MANUAL) 73 % (42-75)
[2020-04-07 06:20] LABS: <PLATELET ESTIMATE> DECREASED; <PLT MORPHOLOGY> NORMAL PLT MORPH; ACANTHOCYTES 2+; ANISOCYTOSIS 1+; OVALOCYTES 1+; SCHISTOCYTES 1+
[2020-04-07 06:28] VITALS: BP 115/67
[2020-04-07 06:30] LABS: PLATELET COUNT 32 x10^3/uL (130-400)
[2020-04-07] MEDS: RIFAXIMIN 550 MG TABLET PO SCH ×2 (09:24→16:46)
[2020-04-07] MEDS: PANTOPRAZOLE 40 MG IV IVPush SCH ×2 (09:25→20:54)
[2020-04-07] MEDS: LACTULOSE 20 GM/30 ML UDC PO SCH ×3 (09:25→20:54)
[2020-04-07] MEDS: SODIUM CHLORIDE FLUSH 10ML SYR IVF SCH ×2 (09:25→20:53)
[2020-04-07 12:48] VITALS: BP 122/69
[2020-04-07 14:35] VITALS: BP 107/64
[2020-04-07 18:56] VITALS: BP 112/63
[2020-04-07] MEDS: CEFTRIAXONE PMX 1GM/50ML 50 ML IV SCH (20:53)
[2020-04-08 00:32] VITALS: BP 114/60
[2020-04-08 04:50] LABS: MEAN CORPUSCULAR HGB CONC 33.6 g/dL (33.2-36.2); MEAN PLATELET VOLUME 8.7 fL (7.4-10.4); RED BLOOD COUNT 2.14 x10^6/uL (4.38-5.82); RED CELL DISTRIBUTION WIDTH 17.7 % (9.4-14.8)
[2020-04-08 04:53] LABS: PLATELET COUNT 43 x10^3/uL (130-400)
[2020-04-08 04:57] LABS: ALANINE AMINOTRANSFERASE 18 U/L (12-78); ALBUMIN 2.7 g/dL (3.4-5.0); ANION GAP 6 mmol/L (5-15); CALCIUM 9.1 mg/dL (8.5-10.1); CHLORIDE 103 mmol/L (98-107)
[2020-04-08 04:59] LABS: ALKALINE PHOSPHATASE 47 U/L (45-117); TOTAL PROTEIN 6.6 g/dL (6.4-8.2)
[2020-04-08 05:13] VITALS: BP 127/69
[2020-04-08] MEDS: PROPRANOLOL 10 MG TABLET PO SCH ×3 (05:32→20:45)
[2020-04-08 05:50] LABS: BASOPHILS % (AUTO) 0 % (0-1); EOSINOPHILS # (AUTO) 0.15 x10^3/uL (0-0.4); EOSINOPHILS % (AUTO) 4 % (1-7); LYMPHOCYTES # (AUTO) 0.62 x10^3/uL (1-3.4); LYMPHOCYTES % (AUTO) 17 % (22-44); MD SCAN; MONOCYTES # (AUTO) 0.45 x10^3/uL (0.2-0.8); MONOCYTES % (AUTO) 12 % (2-9); NEUTROPHILS % (AUTO) 67 % (42-75)
[2020-04-08 07:26] VITALS: BP 134/73
[2020-04-08] MEDS: LACTULOSE 20 GM/30 ML UDC PO SCH ×4 (09:00→20:46)
[2020-04-08] MEDS: RIFAXIMIN 550 MG TABLET PO SCH ×2 (09:22→16:08)
[2020-04-08] MEDS: PANTOPRAZOLE 40 MG IV IVPush SCH (09:23)
[2020-04-08] MEDS: SODIUM CHLORIDE FLUSH 10ML SYR IVF SCH ×2 (09:23→20:45)
[2020-04-08] MEDS: TAMSULOSIN 0.4 MG CAP.ER.24H PO SCH ×2 (09:33→09:45)
[2020-04-08 13:07] VITALS: BP 102/52
[2020-04-08 14:50] VITALS: BP 114/65
[2020-04-08 18:44] VITALS: BP 111/62
[2020-04-08] MEDS: PANTOPRAZOLE 40MG TABLET PO SCH (20:45)
[2020-04-09 00:03] VITALS: BP 107/57
[2020-04-09 05:04] VITALS: BP 112/62
[2020-04-09] MEDS: PROPRANOLOL 10 MG TABLET PO SCH ×3 (05:07→20:53)
[2020-04-09 05:51] LABS: CHLORIDE 103 mmol/L (98-107); MEAN CORPUSCULAR HEMOGLOBIN 35.3 pg (27.5-34.5); MEAN CORPUSCULAR HGB CONC 33.7 g/dL (33.2-36.2); RED BLOOD COUNT 2.01 x10^6/uL (4.38-5.82); RED CELL DISTRIBUTION WIDTH 17.3 % (9.4-14.8)
[2020-04-09 05:53] LABS: PLATELET COUNT 39 x10^3/uL (130-400)
[2020-04-09 05:58] LABS: ALANINE AMINOTRANSFERASE 17 U/L (12-78); ALBUMIN 2.6 g/dL (3.4-5.0); ALKALINE PHOSPHATASE 48 U/L (45-117); ANION GAP 7 mmol/L (5-15); BILIRUBIN,TOTAL 10.1 mg/dL (0.2-1.0); CALCIUM 9.4 mg/dL (8.5-10.1); CREATININE 1.56 mg/dL (0.7-1.3); TOTAL PROTEIN 6.4 g/dL (6.4-8.2)
[2020-04-09 06:24] LABS: BASOPHILS # (AUTO) 0.01 x10^3/uL (0-0.1); BASOPHILS % (AUTO) 0 % (0-1); EOSINOPHILS # (AUTO) 0.07 x10^3/uL (0-0.4); EOSINOPHILS % (AUTO) 3 % (1-7); LYMPHOCYTES # (AUTO) 0.52 x10^3/uL (1-3.4); LYMPHOCYTES % (AUTO) 24 % (22-44); MD SCAN; MONOCYTES # (AUTO) 0.27 x10^3/uL (0.2-0.8); MONOCYTES % (AUTO) 13 % (2-9); NEUTROPHILS # (AUTO) 1.31 x10^3/uL (1.8-6.8); NEUTROPHILS % (AUTO) 60 % (42-75)
[2020-04-09 07:19] VITALS: BP 109/64
[2020-04-09] MEDS: PANTOPRAZOLE 40MG TABLET PO SCH ×2 (09:11→20:58)
[2020-04-09] MEDS: LACTULOSE 20 GM/30 ML UDC PO SCH ×3 (09:11→20:58)
[2020-04-09] MEDS: RIFAXIMIN 550 MG TABLET PO SCH ×2 (09:11→16:19)
[2020-04-09] MEDS: TAMSULOSIN 0.4 MG CAP.ER.24H PO SCH (09:11)
[2020-04-09] MEDS: SODIUM CHLORIDE FLUSH 10ML SYR IVF SCH ×2 (09:12→20:58)
[2020-04-09 12:28] VITALS: BP 132/84
[2020-04-09 14:14] VITALS: BP 103/59
[2020-04-09 19:55] VITALS: BP 105/63
[2020-04-10 00:14] VITALS: BP 106/61
[2020-04-10 04:35] LABS: ALANINE AMINOTRANSFERASE 20 U/L (12-78); ALBUMIN 2.6 g/dL (3.4-5.0); ANION GAP 6 mmol/L (5-15); CALCIUM 9.2 mg/dL (8.5-10.1); CHLORIDE 103 mmol/L (98-107); CREATININE 1.51 mg/dL (0.7-1.3)
[2020-04-10 04:37] LABS: ALKALINE PHOSPHATASE 44 U/L (45-117); BILIRUBIN,TOTAL 9.5 mg/dL (0.2-1.0); TOTAL PROTEIN 6.1 g/dL (6.4-8.2)
[2020-04-10 05:24] VITALS: BP 116/67
[2020-04-10] MEDS: PROPRANOLOL 10 MG TABLET PO SCH ×3 (05:25→21:14)
[2020-04-10 06:17] LABS: MEAN CORPUSCULAR HEMOGLOBIN 35.8 pg (27.5-34.5); MEAN CORPUSCULAR HGB CONC 34.5 g/dL (33.2-36.2); MEAN PLATELET VOLUME 9.1 fL (7.4-10.4); RED BLOOD COUNT 1.99 x10^6/uL (4.38-5.82); RED CELL DISTRIBUTION WIDTH 17.5 % (9.4-14.8)
[2020-04-10 06:22] LABS: PLATELET COUNT 48 x10^3/uL (130-400)
[2020-04-10 06:39] VITALS: BP 103/62
[2020-04-10 06:56] LABS: BASOPHILS # (AUTO) 0.01 x10^3/uL (0-0.1); BASOPHILS % (AUTO) 0 % (0-1); EOSINOPHILS # (AUTO) 0.06 x10^3/uL (0-0.4); EOSINOPHILS % (AUTO) 3 % (1-7); LYMPHOCYTES # (AUTO) 0.45 x10^3/uL (1-3.4); LYMPHOCYTES % (AUTO) 25 % (22-44); MD MORPH REVIEW ONLY; MONOCYTES # (AUTO) 0.23 x10^3/uL (0.2-0.8); MONOCYTES % (AUTO) 13 % (2-9); NEUTROPHILS # (AUTO) 1.05 x10^3/uL (1.8-6.8); NEUTROPHILS % (AUTO) 59 % (42-75)
[2020-04-10 06:57] LABS: ANISOCYTOSIS 1+
[2020-04-10 06:59] LABS: <PLATELET ESTIMATE> DECREASED; <PLT MORPHOLOGY> NORMAL PLT MORPH; ACANTHOCYTES 1+; ECHINOCYTES 1+; SCHISTOCYTES 1+
[2020-04-10] MEDS: RIFAXIMIN 550 MG TABLET PO SCH ×2 (08:38→15:59)
[2020-04-10] MEDS: TAMSULOSIN 0.4 MG CAP.ER.24H PO SCH (08:38)
[2020-04-10] MEDS: VENLAFAXINE 25MG TABLET PO SCH (08:38)
[2020-04-10] MEDS: LACTULOSE 20 GM/30 ML UDC PO SCH ×3 (08:45→20:42)
[2020-04-10] MEDS: PANTOPRAZOLE 40MG TABLET PO SCH ×2 (08:46→21:14)
[2020-04-10] MEDS: SODIUM CHLORIDE FLUSH 10ML SYR IVF SCH ×2 (08:46→21:14)
[2020-04-10 12:04] VITALS: BP 95/57
[2020-04-10 20:04] VITALS: BP 104/63
[2020-04-10 21:11] VITALS: BP 102/63
[2020-04-11 00:25] VITALS: BP 125/75
[2020-04-11 05:39] LABS: MEAN CORPUSCULAR HGB CONC 34.2 g/dL (33.2-36.2); MEAN PLATELET VOLUME 9.1 fL (7.4-10.4); PLATELET COUNT 58 x10^3/uL (130-400); RED BLOOD COUNT 1.96 x10^6/uL (4.38-5.82)
[2020-04-11 05:49] LABS: ALBUMIN 2.7 g/dL (3.4-5.0); ANION GAP 7 mmol/L (5-15); CALCIUM 9.4 mg/dL (8.5-10.1); CHLORIDE 103 mmol/L (98-107); CREATININE 1.68 mg/dL (0.7-1.3)
[2020-04-11] MEDS: PROPRANOLOL 10 MG TABLET PO SCH ×3 (06:00→20:35)
[2020-04-11 06:06] VITALS: BP 115/69
[2020-04-11 06:20] LABS: ACANTHOCYTES 1+; ANISOCYTOSIS 1+; BASOPHILS # (AUTO) 0.01 x10^3/uL (0-0.1); BASOPHILS % (AUTO) 0 % (0-1); ECHINOCYTES 1+; EOSINOPHILS # (AUTO) 0.05 x10^3/uL (0-0.4); EOSINOPHILS % (AUTO) 3 % (1-7); LYMPHOCYTES # (AUTO) 0.49 x10^3/uL (1-3.4); LYMPHOCYTES % (AUTO) 26 % (22-44); MD MORPH REVIEW ONLY; MONOCYTES # (AUTO) 0.25 x10^3/uL (0.2-0.8); MONOCYTES % (AUTO) 13 % (2-9); NEUTROPHILS % (AUTO) 58 % (42-75); OVALOCYTES 1+; SCHISTOCYTES 1+
[2020-04-11 06:22] LABS: <PLATELET ESTIMATE> DECREASED; <PLT MORPHOLOGY> NORMAL PLT MORPH
[2020-04-11] MEDS ORDERED: POTASSIUM PHOSPHATE 44 MEQ in SODIUM CHLORIDE 0.9% 500 ML IV ONE (08:30)
[2020-04-11] MEDS: RIFAXIMIN 550 MG TABLET PO SCH ×2 (08:36→17:29)
[2020-04-11] MEDS: LACTULOSE 20 GM/30 ML UDC PO SCH ×3 (08:36→20:40)
[2020-04-11] MEDS: PANTOPRAZOLE 40MG TABLET PO SCH ×2 (08:37→20:35)
[2020-04-11] MEDS: TAMSULOSIN 0.4 MG CAP.ER.24H PO SCH (08:39)
[2020-04-11] MEDS: VENLAFAXINE 25MG TABLET PO SCH (08:39)
[2020-04-11] MEDS: SODIUM CHLORIDE FLUSH 10ML SYR IVF SCH ×2 (08:41→20:34)
[2020-04-11 13:51] VITALS: BP 112/66
[2020-04-11 19:10] VITALS: BP 111/64
[2020-04-12 01:51] VITALS: BP 109/58
[2020-04-12 05:25] VITALS: BP 109/63
[2020-04-12 05:27] LABS: ANION GAP 7 mmol/L (5-15); CALCIUM 9.3 mg/dL (8.5-10.1); CHLORIDE 103 mmol/L (98-107); CREATININE 2.25 mg/dL (0.7-1.3)
[2020-04-12] MEDS: PROPRANOLOL 10 MG TABLET PO SCH ×2 (05:29→14:00)
[2020-04-12 05:38] LABS: MEAN CORPUSCULAR HEMOGLOBIN 35.5 pg (27.5-34.5); MEAN PLATELET VOLUME 8.8 fL (7.4-10.4); PLATELET COUNT 68 x10^3/uL (130-400); RED BLOOD COUNT 2.03 x10^6/uL (4.38-5.82); RED CELL DISTRIBUTION WIDTH 18.2 % (9.4-14.8)
[2020-04-12 06:07] LABS: BASOPHILS # (AUTO) 0.01 x10^3/uL (0-0.1); BASOPHILS % (AUTO) 1 % (0-1); EOSINOPHILS # (AUTO) 0.05 x10^3/uL (0-0.4); EOSINOPHILS % (AUTO) 3 % (1-7); LYMPHOCYTES # (AUTO) 0.43 x10^3/uL (1-3.4); LYMPHOCYTES % (AUTO) 22 % (22-44); MD SCAN; MONOCYTES # (AUTO) 0.23 x10^3/uL (0.2-0.8); MONOCYTES % (AUTO) 12 % (2-9); NEUTROPHILS # (AUTO) 1.24 x10^3/uL (1.8-6.8); NEUTROPHILS % (AUTO) 63 % (42-75)
[2020-04-12 08:09] VITALS: BP 100/63
[2020-04-12] MEDS: LACTULOSE 20 GM/30 ML UDC PO SCH (09:27)
[2020-04-12] MEDS: PANTOPRAZOLE 40MG TABLET PO SCH (09:27)
[2020-04-12] MEDS: TAMSULOSIN 0.4 MG CAP.ER.24H PO SCH (09:27)
[2020-04-12] MEDS: RIFAXIMIN 550 MG TABLET PO SCH (09:27)
[2020-04-12] MEDS: SODIUM CHLORIDE FLUSH 10ML SYR IVF SCH (09:28)
[2020-04-12] MEDS: VENLAFAXINE 25MG TABLET PO SCH (09:28)
[2020-04-12 13:16] VITALS: BP 107/63
[2020-04-12] MEDS ORDERED: MIDODRINE 5 MG TABLET PO SCH (16:00)
== END 2020-04-12 14:55 | disposition home or self-care (01) | DRG 441 ==
LOC: ED 16:22 → EDIP 18:26 → 4WST 20:09
PROVIDERS: ADMIT Family Medicine; ATTEND Family Medicine
PROC: 06HY33Z Insertion of Infusion Device into Lower Vein, Percutaneous Approach (ICD-10-PCS; 2020-04-01)
PROC: 30233P1 Transfusion of Nonautologous Frozen Red Cells into Peripheral Vein, Percutaneous Approach (ICD-10-PCS; 2020-04-03)
PROC: 0DJD8ZZ Inspection of Lower Intestinal Tract, Via Natural or Artificial Opening Endoscopic (ICD-10-PCS; 2020-04-06)
PROC: 30233L1 Transfusion of Nonautologous Fresh Plasma into Peripheral Vein, Percutaneous Approach (ICD-10-PCS; 2020-04-06)
PROC: 06L38CZ Occlusion of Esophageal Vein with Extraluminal Device, Via Natural or Artificial Opening Endoscopic (ICD-10-PCS; principal; 2020-04-06 09:00)
DX: K72.90 Hepatic failure, unspecified without coma (principal); J96.21 Acute and chronic respiratory failure with hypoxia; N17.0 Acute kidney failure with tubular necrosis; K76.7 Hepatorenal syndrome; D62 Acute posthemorrhagic anemia; D68.9 Coagulation defect, unspecified; I13.0 Hypertensive heart and chronic kidney disease with heart failure and stage 1 through stage 4 chronic kidney disease, or unspecified chronic kidney disease; Z68.43 Body mass index [BMI] 50.0-59.9, adult; K76.6 Portal hypertension; I85.10 Secondary esophageal varices without bleeding; K70.30 Alcoholic cirrhosis of liver without ascites; K70.10 Alcoholic hepatitis without ascites; D53.9 Nutritional anemia, unspecified; D63.8 Anemia in other chronic diseases classified elsewhere; D69.6 Thrombocytopenia, unspecified; E66.01 Morbid (severe) obesity due to excess calories; E87.5 Hyperkalemia; F10.20 Alcohol dependence, uncomplicated; F32.9 Major depressive disorder, single episode, unspecified; N18.9 Chronic kidney disease, unspecified; I50.9 Heart failure, unspecified; Z80.3 Family history of malignant neoplasm of breast; Z72.0 Tobacco use
CPT/HCPCS: 36415; 36430; 36556; 36600; 71045; 76770; 78278; 80053; 80069; 80307; 81001; 82140; 82272; 82436; 82803; 82962; 83690; 83735; 83880; 84100; 84133; 84300; 84484; 85014; 85018; 85025; 85610; 86022; 86705; 86706; 86850; 86900; 86923; 87340; 87635; 90935; 93005; G0378; J0696; J2405; J2704; P9047; A9560; C1751; C9113; J0330; J1642; J7040; P9016; P9035

== ENCOUNTER 2020-05-26 20:08 | Emergency (ER) | payer MEDICARE, MEDICAID ==
[~2020-05-26] VITALS: Ht 172.7 cm; Wt 118.0 kg
[~2020-05-26 20:08] MED LIST changes: +FURO20TA3 PO; +MIDO5TAB9 PO; +TAMS-11 PO
[2020-05-26 20:47] LABS: BASOPHILS % (AUTO) 1 % (0-1); EOSINOPHILS % (AUTO) 3 % (1-7); LYMPHOCYTES % (AUTO) 18 % (22-44); MEAN CORPUSCULAR HEMOGLOBIN 36.1 pg (27.5-34.5); MEAN CORPUSCULAR HGB CONC 34.4 g/dL (33.2-36.2); MEAN PLATELET VOLUME 9.7 fL (7.4-10.4); MONOCYTES % (AUTO) 8 % (2-9); NEUTROPHILS % (AUTO) 70 % (42-75); PLATELET COUNT 61 x10^3/uL (130-400); RED BLOOD COUNT 1.98 x10^6/uL (4.38-5.82); RED CELL DISTRIBUTION WIDTH 21.9 % (9.4-14.8)
[2020-05-26 20:55] LABS: ALANINE AMINOTRANSFERASE 27 U/L (12-78); ALBUMIN 3.7 g/dL (3.4-5.0); ANION GAP 8 mmol/L (5-15); CHLORIDE 97 mmol/L (98-107); CREATININE 4.33 mg/dL (0.7-1.3)
[2020-05-26 20:58] LABS: ALKALINE PHOSPHATASE 115 U/L (45-117); BILIRUBIN,TOTAL 11.9 mg/dL (0.2-1.0)
--- NOTE | 2020-05-26 21:01 | NUR ---
JANITORIAL CLEANER: PT. TO ROOM FROM LOBBY AT THIS TIME.
--- NOTE | 2020-05-26 21:10 | NUR ---
LATE ENTRY D/T PT CARE: PT CAME INTO ED TONIGHT DUE TO GETTING A CALL AND TOLD HE HAD A LOW HGB, PT CAME INTO ED WITH HX OF CKD/LIVER FX. PT CHRONICALLY ANEMIC. PT NOTED TO BE JAUNDICED. NAD, RESTING ON GURNEY, ANOx4, MOM AT , [facility]. PROVIDED WARM BLANKETS FOR COMFORT.
[2020-05-26 21:16] LABS: MD SCAN
[2020-05-26] MEDS ORDERED: MICROFIBRILLAR COLLAGEN 1 GM TP ONE (21:41)
[2020-05-26 22:18] VITALS: BP 112/41
--- NOTE | 2020-05-26 22:19 | NUR ---
Patient given discharge instructions and they have confirmed that they understand the instructions. Patient ambulatory with steady gait. DENIES ADDITIONAL QUESTIONS OR NEEDS, NAD, NO PERSONAL BELONGINGS LEFT IN ROOM AT TIME OF DC.
== END 2020-05-26 22:33 | disposition home or self-care (01) ==
LOC: ED 22:00
DX: D53.9 Nutritional anemia, unspecified (principal); I12.0 Hypertensive chronic kidney disease with stage 5 chronic kidney disease or end stage renal disease; N18.6 End stage renal disease; K21.9 Gastro-esophageal reflux disease without esophagitis; Z99.2 Dependence on renal dialysis
CPT/HCPCS: 36415; 80053; 83690; 85025; 86850; 86900; 99283

== ENCOUNTER 2020-06-03 19:36 | Emergency (ER) | payer MEDICARE, MEDICAID ==
[~2020-06-03] VITALS: Ht 172.7 cm; Wt 120.2 kg
[2020-06-03] MEDS ORDERED: SODIUM CHLORIDE FLUSH 10ML SYR IVF ONE (20:00)
[2020-06-03 22:00] LABS: BASOPHILS % (AUTO) 0 % (0-1); EOSINOPHILS % (AUTO) 2 % (1-7); LYMPHOCYTES % (AUTO) 13 % (22-44); MEAN CORPUSCULAR HGB CONC 34.7 g/dL (33.2-36.2); MEAN PLATELET VOLUME 9.9 fL (7.4-10.4); MONOCYTES % (AUTO) 7 % (2-9); NEUTROPHILS % (AUTO) 77 % (42-75); RED CELL DISTRIBUTION WIDTH 19.8 % (9.4-14.8)
[2020-06-03 22:09] LABS: PLATELET COUNT 37 x10^3/uL (130-400)
[2020-06-03 22:11] LABS: ALBUMIN 3.3 g/dL (3.4-5.0); ANION GAP 4 mmol/L (5-15); CALCIUM 9.2 mg/dL (8.5-10.1); CHLORIDE 100 mmol/L (98-107); INTERNATIONAL NORMALIZED RATIO 1.97 (0.93-1.1); PROTHROMBIN TIME 20.7 Seconds (9.6-11.5)
--- NOTE | 2020-06-03 22:12 | NUR ---
PT TO ROOM FROM LOBBY
[2020-06-03 22:16] LABS: ALANINE AMINOTRANSFERASE 27 U/L (12-78); ALKALINE PHOSPHATASE 139 U/L (45-117); BILIRUBIN,TOTAL 10.6 mg/dL (0.2-1.0); TOTAL PROTEIN 7.5 g/dL (6.4-8.2)
[2020-06-03 22:30] LABS: MD MORPH REVIEW ONLY
[2020-06-03 22:31] LABS: ANISOCYTOSIS 1+; ECHINOCYTES 1+; HYPOCHROMIA 1+; MICROCYTOSIS 1+; SCHISTOCYTES 1+
[2020-06-03 22:32] LABS: <PLATELET ESTIMATE> DECREASED; <PLT MORPHOLOGY> NORMAL PLT MORPH; OVALOCYTES 1+
[2020-06-03] MEDS ORDERED: LACTULOSE 10 GM/15 ML UDC PO ONE (23:00)
[2020-06-03 23:27] VITALS: BP 111/32
[2020-06-03 23:43] VITALS: BP 124/49
[2020-06-04 00:42] VITALS: BP 120/43
--- NOTE | 2020-06-04 01:02 | NUR ---
BLOOD TRANSFUSION COMPLETE. NO ADVERSE REACTIONS.
--- NOTE | 2020-06-04 01:14 | NUR ---
REPORT RECEIVED FROM JUANJO MCKINNEY. PLAN OF CARE DISCUSSED. PATIENT UP FOR RECHECK
[2020-06-04 01:50] VITALS: BP 126/45
--- NOTE | 2020-06-04 02:00 | NUR ---
Patient given discharge instructions and they have confirmed that they understand the instructions. Patient ambulatory with steady gait.
== END 2020-06-04 02:03 | disposition home or self-care (01) ==
LOC: ED 23:22
DX: I13.2 Hypertensive heart and chronic kidney disease with heart failure and with stage 5 chronic kidney disease, or end stage renal disease (principal); D63.1 Anemia in chronic kidney disease; N18.6 End stage renal disease; Z99.2 Dependence on renal dialysis; Z87.891 Personal history of nicotine dependence
CPT/HCPCS: 36415; 36430; 80053; 85025; 85610; 85730; 86850; 86900; 86923; 99285; P9016

== ENCOUNTER 2020-06-26 09:50 | Emergency (ER) | payer MEDICARE, MEDICAID ==
[~2020-06-26] VITALS: Ht 172.7 cm; Wt 119.7 kg
[2020-06-26 10:34] LABS: MEAN CORPUSCULAR HEMOGLOBIN 38.7 pg (27.5-34.5); MEAN CORPUSCULAR HGB CONC 34.8 g/dL (33.2-36.2); MEAN PLATELET VOLUME 9.4 fL (7.4-10.4); PLATELET COUNT 63 x10^3/uL (130-400); RED BLOOD COUNT 1.81 x10^6/uL (4.38-5.82); RED CELL DISTRIBUTION WIDTH 16.1 % (9.4-14.8)
--- NOTE | 2020-06-26 10:36 | NUR ---
SENT IN BY [employer] FOR LOW H&H. PT IN BED IN GOWN WITH CONT CARE ANALYST, SPO2, BP Q 30 MIN, SIDE RAILS UP X2, CALL LIGHT IN REACH. 20 G IV STARTED IN LEFT AC. BLOOD CONSENT SIGNED. PT AGREES TO PLAN OF CARE.
[2020-06-26 10:44] LABS: ANION GAP 9 mmol/L (5-15); CALCIUM 9.5 mg/dL (8.5-10.1); CHLORIDE 97 mmol/L (98-107); CREATININE 3.36 mg/dL (0.7-1.3)
[2020-06-26 10:45] LABS: MD YES
[2020-06-26 10:52] LABS: BAND#(MANUAL) 0.04 x10^3/uL; BANDS%(MANUAL) 1 % (0-7); BASOS#(MANUAL) 0.12 x10^3/uL (0-0.1); BASOS% (MANUAL) 3 % (0-1); EOS#(MANUAL) 0.12 x10^3/uL (0.0-0.4); EOS% (MANUAL) 3 % (1-7); LYMPHS% (MANUAL) 15 % (22-44); METAMYELOCYTES# (MANUAL) 0.04 x10^3/uL (0-0); METAMYELOCYTES% (MANUAL) 1 % (0-1); MONOS#(MANUAL) 0.24 x10^3/uL (0.3-2.7); MONOS% (MANUAL) 6 % (2-9); SEG#(MANUAL) 2.84 x10^3/uL (1.8-6.8); SEGS% (MANUAL) 71 % (42-75)
[2020-06-26 10:54] LABS: ANISOCYTOSIS 1+; OVALOCYTES 1+
[2020-06-26 10:55] LABS: <PLATELET ESTIMATE> DECREASED; <PLT MORPHOLOGY> NORMAL PLT MORPH; ACANTHOCYTES 1+; SCHISTOCYTES 1+
[2020-06-26 11:47] VITALS: BP 124/52
[2020-06-26 12:08] VITALS: BP 116/50
[2020-06-26 13:46] VITALS: BP 129/26
[2020-06-26 14:07] VITALS: BP 114/36
== END 2020-06-26 14:20 | disposition home or self-care (01) ==
LOC: ED 11:31
DX: I13.0 Hypertensive heart and chronic kidney disease with heart failure and stage 1 through stage 4 chronic kidney disease, or unspecified chronic kidney disease (principal); N18.9 Chronic kidney disease, unspecified; I50.9 Heart failure, unspecified; D63.1 Anemia in chronic kidney disease
CPT/HCPCS: 36415; 36430; 80048; 82040; 85025; 86850; 86900; 86923; 99285; P9016

== ENCOUNTER 2020-07-07 20:50 | Emergency (ER) | payer MEDICARE, MEDICAID ==
[~2020-07-07] VITALS: Ht 172.7 cm; Wt 118.0 kg
--- NOTE | 2020-07-07 21:07 | NUR ---
EKG done at triage
[2020-07-07] MEDS ORDERED: ZINC (21:52)
[2020-07-07 21:53] LABS: BASOPHILS % (AUTO) 0 % (0-1); EOSINOPHILS % (AUTO) 3 % (1-7); LYMPHOCYTES % (AUTO) 16 % (22-44); MEAN CORPUSCULAR HEMOGLOBIN 37.3 pg (27.5-34.5); MEAN CORPUSCULAR HGB CONC 34.4 g/dL (33.2-36.2); MEAN PLATELET VOLUME 9.5 fL (7.4-10.4); MONOCYTES % (AUTO) 10 % (2-9); NEUTROPHILS % (AUTO) 70 % (42-75); RED BLOOD COUNT 1.81 x10^6/uL (4.38-5.82); RED CELL DISTRIBUTION WIDTH 16.5 % (9.4-14.8)
[2020-07-07 21:58] LABS: PLATELET COUNT 48 x10^3/uL (130-400)
--- NOTE | 2020-07-07 21:58 | NUR ---
PIV PLACED BY TASK RN VIA . LABS DRAWN BY SAFETY DIRECTOR. DIALYSIS PORT NOT BEING USED. PT RESTING COMFORTABLY ON GURNEY. WARM BLANKET PROVIDED.
[2020-07-07 22:05] LABS: ALANINE AMINOTRANSFERASE 31 U/L (12-78); ALBUMIN 2.9 g/dL (3.4-5.0); ANION GAP 5 mmol/L (5-15); CALCIUM 9.4 mg/dL (8.5-10.1); CHLORIDE 98 mmol/L (98-107); CREATININE 2.99 mg/dL (0.7-1.3)
[2020-07-07 22:07] LABS: ALKALINE PHOSPHATASE 160 U/L (45-117); BILIRUBIN,TOTAL 8.3 mg/dL (0.2-1.0); TOTAL PROTEIN 7.2 g/dL (6.4-8.2)
[2020-07-07 22:16] LABS: MD SCAN
--- NOTE | 2020-07-07 22:22 | NUR ---
report received from juan manuel granger
[2020-07-07 22:41] VITALS: BP 118/45
[2020-07-07 22:56] VITALS: BP 116/39
--- NOTE | 2020-07-07 23:12 | NUR ---
pt resting in [employer], playing games on cell phone. call light within reach. blood transfusion infusing.
[2020-07-07 23:33] VITALS: BP 103/36
--- NOTE | 2020-07-07 23:34 | NUR ---
TRANSFUSION COMPLETE, TOLERATED WELL. PT RESTING. NO NEEDS AT THIS TIME.
[2020-07-08 00:08] VITALS: BP 125/57
== END 2020-07-08 00:47 | disposition home or self-care (01) ==
LOC: ED 21:19
DX: I13.10 Hypertensive heart and chronic kidney disease without heart failure, with stage 1 through stage 4 chronic kidney disease, or unspecified chronic kidney disease (principal); N18.9 Chronic kidney disease, unspecified; K70.30 Alcoholic cirrhosis of liver without ascites; D53.9 Nutritional anemia, unspecified; K21.9 Gastro-esophageal reflux disease without esophagitis; E66.9 Obesity, unspecified; Z68.39 Body mass index [BMI] 39.0-39.9, adult; Z87.891 Personal history of nicotine dependence
CPT/HCPCS: 36415; 36430; 80053; 85025; 86850; 86900; 86923; 93005; 99285; P9016

== ENCOUNTER 2020-07-23 06:41 | Emergency (ER) | payer MEDICARE, MEDICAID ==
[~2020-07-23] VITALS: Ht 172.7 cm; Wt 111.0 kg
[~2020-07-23 06:41] MED LIST changes: +ZINC
--- NOTE | 2020-07-23 06:55 | NUR ---
pt states he woke up this morning and he noticed this his dialysis port in his chest had come out. pt with a recent fistula created on the left arm for dialysis. bleeding not controlled upon arrival to the ER. manual pressure with gauze applied to stop bleeding. pt attached to all monitors. piv placed and labs drawn. dr mina at bedside for assessment
--- NOTE | 2020-07-23 07:02 | NUR ---
Bleeding now controlled, guaze and tegaderm placed. MD Reilly to bedside. Pt to shower and then go to IR for new catheter placement.
--- NOTE | 2020-07-23 07:06 | NUR ---
report to elkin schultz
[2020-07-23 07:48] LABS: BASOPHILS % (AUTO) 0 % (0-1); EOSINOPHILS % (AUTO) 3 % (1-7); LYMPHOCYTES % (AUTO) 20 % (22-44); MEAN CORPUSCULAR HEMOGLOBIN 37.1 pg (27.5-34.5); MEAN CORPUSCULAR HGB CONC 34.5 g/dL (33.2-36.2); MEAN PLATELET VOLUME 9.1 fL (7.4-10.4); MONOCYTES % (AUTO) 8 % (2-9); NEUTROPHILS % (AUTO) 68 % (42-75); RED BLOOD COUNT 2.05 x10^6/uL (4.38-5.82); RED CELL DISTRIBUTION WIDTH 16.7 % (9.4-14.8)
[2020-07-23 07:58] LABS: INTERNATIONAL NORMALIZED RATIO 1.85 (0.93-1.1); PROTHROMBIN TIME 19.5 Seconds (9.6-11.5)
[2020-07-23 07:59] LABS: ALBUMIN 2.7 g/dL (3.4-5.0); ANION GAP 4 mmol/L (5-15); CALCIUM 9.4 mg/dL (8.5-10.1); CHLORIDE 96 mmol/L (98-107); CREATININE 2.64 mg/dL (0.7-1.3)
[2020-07-23 08:09] LABS: ALANINE AMINOTRANSFERASE 28 U/L (12-78); ALKALINE PHOSPHATASE 160 U/L (45-117); BILIRUBIN,TOTAL 10.6 mg/dL (0.2-1.0); TOTAL PROTEIN 6.8 g/dL (6.4-8.2)
[2020-07-23 08:19] LABS: PLATELET COUNT 29 x10^3/uL (130-400)
[2020-07-23 08:20] LABS: MD SCAN
--- NOTE | 2020-07-23 09:02 | NUR ---
Blood sent for. Consent obtained.
[2020-07-23] MEDS ORDERED: LIDOCAINE 1%, 20ML ONE (09:30)
--- NOTE | 2020-07-23 09:33 | NUR ---
IR called and updated. Per IR, blood to be finished transfusing before pt goes for procedure, "if Carline wants to get him earlier, I'll call back."
[2020-07-23 09:51] VITALS: BP 125/24
[2020-07-23 10:11] VITALS: BP 128/42
--- NOTE | 2020-07-23 10:53 | NUR ---
Pt wears 2L NC O2 at baseline.
[2020-07-23] MEDS ORDERED: FENTANYL PF 100 MCG/2ML ONE (10:55)
[2020-07-23] MEDS ORDERED: FLUMAZENIL 0.1 MG/1 ML, 5ML ONE (10:55)
[2020-07-23] MEDS ORDERED: MIDAZOLAM 1 MG/ML, 5ML ONE (10:55)
[2020-07-23] MEDS ORDERED: NALOXONE 1 MG/ML, 2ML ONE (10:56)
--- NOTE | 2020-07-23 11:16 | NUR ---
Blood still infusing, pt remains awake and alert, NADN.
[2020-07-23 12:06] VITALS: BP 129/47
--- NOTE | 2020-07-23 12:15 | NUR ---
Pt to IR at this time.
[2020-07-23] MEDS ORDERED: CEFAZOLIN PMX 1GM/50ML 50 ML ONE (12:51)
--- NOTE | 2020-07-23 13:02 | NUR ---
Pt remains in IR.
[2020-07-23] MEDS ORDERED: THROMBIN 5,000 UNIT VIAL TP ONE (13:39)
--- NOTE | 2020-07-23 14:09 | NUR ---
BREAK RN: PT BACK FROM IR. VS STABLE. NO ACUTE DISTRESS NOTED. CALL LIGHT IN PLACE. MEDICAL LABORATORY MANAGER ON. NSR NOTED. WILL CONTINUE TO MONITOR WHILE PRIMARY RN IS ON BREAK.
[2020-07-23 14:43] VITALS: BP 136/51
--- NOTE | 2020-07-23 14:49 | NUR ---
Pt dressing self for D/C, awake and alert.
--- NOTE | 2020-07-23 15:12 | NUR ---
Pt reports "I've got a house full of 6 people in 3 rooms, there's lots of people to check on me."
== END 2020-07-23 15:11 | disposition home or self-care (01) ==
LOC: ED 08:08
DX: I13.0 Hypertensive heart and chronic kidney disease with heart failure and stage 1 through stage 4 chronic kidney disease, or unspecified chronic kidney disease (principal); N18.6 End stage renal disease; I50.9 Heart failure, unspecified; D63.1 Anemia in chronic kidney disease; Z99.2 Dependence on renal dialysis; Z45.2 Encounter for adjustment and management of vascular access device; Z87.891 Personal history of nicotine dependence
CPT/HCPCS: 36415; 36430; 36558; 71045; 76937; 80053; 85025; 85610; 85730; 86850; 86900; 86923; 99285; C1750; J0690; J1642; J2250; J3010; J3490; P9016; J2310

== ENCOUNTER → 2020-08-11 | Outpatient (CLI) | payer MEDICARE, MEDICAID ==
[2020-08-11 10:51] LABS: BASOPHILS % (AUTO) 0 % (0-1); EOSINOPHILS % (AUTO) 3 % (1-7); LYMPHOCYTES % (AUTO) 19 % (22-44); MEAN CORPUSCULAR HEMOGLOBIN 36.6 pg (27.5-34.5); MEAN CORPUSCULAR HGB CONC 34.8 g/dL (33.2-36.2); MEAN PLATELET VOLUME 9.3 fL (7.4-10.4); MONOCYTES % (AUTO) 9 % (2-9); NEUTROPHILS % (AUTO) 69 % (42-75); RED BLOOD COUNT 2.04 x10^6/uL (4.38-5.82); RED CELL DISTRIBUTION WIDTH 16.3 % (9.4-14.8)
[2020-08-11 10:58] LABS: ALANINE AMINOTRANSFERASE 31 U/L (12-78); ALBUMIN 2.5 g/dL (3.4-5.0); ANION GAP 7 mmol/L (5-15); CALCIUM 8.9 mg/dL (8.5-10.1); CHLORIDE 100 mmol/L (98-107); CREATININE 2.09 mg/dL (0.7-1.3); IRON LEVEL 181 mcg/dL (65-175)
[2020-08-11 10:59] LABS: MD NO; PLATELET COUNT 47 x10^3/uL (130-400)
[2020-08-11 11:10] LABS: % IRON SATURATION 97 % (20-55); ALKALINE PHOSPHATASE 154 U/L (45-117); BILIRUBIN,TOTAL 8.8 mg/dL (0.2-1.0); INTERNATIONAL NORMALIZED RATIO 1.89 (0.93-1.1); TOTAL IRON BINDING CAPACITY 187 mcg/dL (250-450); TOTAL PROTEIN 6.5 g/dL (6.4-8.2)
== END | disposition home or self-care (01) ==
LOC: LAB 10:19
PROVIDERS: ATTEND Internal Medicine Gastroenterology
DX: K70.30 Alcoholic cirrhosis of liver without ascites (principal); K70.0 Alcoholic fatty liver; N18.9 Chronic kidney disease, unspecified; K72.90 Hepatic failure, unspecified without coma; I85.00 Esophageal varices without bleeding
CPT/HCPCS: 36415; 80053; 82103; 82105; 82728; 83516; 83540; 83550; 85025; 85610; 86038; 86480; 86704; 86706; 86708; 86803; 87340